=== PATIENT | female | born 1985 | race Caucasian/White ===

== ENCOUNTER 2018-02-03 08:46 | Inpatient (IN) | payer OTHER ==
[~2018-02-03] VITALS: Ht 170.2 cm; Wt 82.2 kg
[2018-02-11] MEDS: D5%-LACTATED RINGERS 1,000 ML IV SCH ×2 (06:23→14:23)
[2018-02-11] MEDS ORDERED: OXYTOCIN 30U/ 0.9% NaCL 500ML 500 ML IV ONE (06:23)
[2018-02-11] MEDS ORDERED: FENTANYL PF 100 MCG/2ML IVPush PRN (06:30)
[2018-02-11] MEDS ORDERED: ONDANSETRON 2MG/ML, 2ML IVPush PRN (06:30)
[2018-02-11] MEDS ORDERED: CALCIUM CARBONATE 500 MG TAB.CHEW PO PRN (06:30)
[2018-02-11] MEDS ORDERED: FENTANYL PF 100 MCG/2ML IV PRN (06:30)
[2018-02-11] MEDS: LACTATED RINGERS 1,000 ML IV SCH ×2 (06:45→14:23)
[2018-02-11 06:57] LABS: BASOPHILS # (AUTO) 0.05 x10^3/uL (0-0.1); BASOPHILS % (AUTO) 1 % (0-1); EOSINOPHILS % (AUTO) 0 % (1-7); LYMPHOCYTES # (AUTO) 2.44 x10^3/uL (1-3.4); LYMPHOCYTES % (AUTO) 29 % (22-44); MD NO; MEAN CORPUSCULAR HEMOGLOBIN 28.7 pg (27.0-34.8); MEAN CORPUSCULAR HGB CONC 33.3 g/dL (32.4-35.8); MEAN CORPUSCULAR VOLUME 86.1 fL (80-100); MEAN PLATELET VOLUME 6.9 fL (7.4-10.4); MONOCYTES # (AUTO) 0.48 x10^3/uL (0.2-0.8); MONOCYTES % (AUTO) 6 % (2-9); NEUTROPHILS # (AUTO) 5.38 x10^3/uL (1.8-6.8); NEUTROPHILS % (AUTO) 64 % (42-75); PLATELET COUNT 267 x10^3/uL (130-400); RED BLOOD COUNT 3.59 x10^6/uL (3.82-5.3); RED CELL DISTRIBUTION WIDTH 13.7 % (9.6-15.2)
[2018-02-11] MEDS ORDERED: SODIUM CITRATE/CITRIC ACID 30 ML UDC PO ONE (07:00)
[2018-02-11] MEDS ORDERED: METOCLOPRAMIDE 5 MG/ML, 2ML IV ONE (07:00)
[2018-02-11] MEDS ORDERED: OXYTOCIN 30U/ 0.9% NaCL 500ML 500 ML ONE ×2 (07:45→16:10)
[2018-02-11] MEDS ORDERED: LIDOCAINE 1%, 20ML ONE ×2 (07:46→15:38)
[2018-02-11] MEDS ORDERED: MISOPROSTOL 200 MCG TABLET ONE (07:46)
[2018-02-11] MEDS ORDERED: SODIUM CITRATE/CITRIC ACID 30 ML UDC ONE (07:48)
[2018-02-11] MEDS ORDERED: METOCLOPRAMIDE 5 MG/ML, 2ML ONE (07:48)
[2018-02-11] MEDS ORDERED: OXYTOCIN 30U/ 0.9% NaCL 500ML 500 ML IV PRN (09:10)
[2018-02-11] MEDS ORDERED: IBUPROFEN 600 MG TABLET ONE (15:54)
[2018-02-11] MEDS: OXYTOCIN 30U/ 0.9% NaCL 500ML 500 ML IV SCH (15:55)
[2018-02-11] MEDS: IBUPROFEN 600 MG TABLET PO PRN ×2 (16:01→23:30)
[2018-02-11 17:42] VITALS: BP 116/75
[2018-02-11 20:20] VITALS: BP 119/78
[2018-02-11 23:30] VITALS: BP 98/58
[2018-02-11 23:54] LABS: BASOPHILS # (AUTO) 0.05 x10^3/uL (0-0.1); BASOPHILS % (AUTO) 0 % (0-1); EOSINOPHILS % (AUTO) 0 % (1-7); LYMPHOCYTES # (AUTO) 2.03 x10^3/uL (1-3.4); LYMPHOCYTES % (AUTO) 17 % (22-44); MD NO; MEAN CORPUSCULAR HEMOGLOBIN 29.5 pg (27.0-34.8); MEAN CORPUSCULAR HGB CONC 33.9 g/dL (32.4-35.8); MEAN PLATELET VOLUME 7.4 fL (7.4-10.4); MONOCYTES # (AUTO) 0.63 x10^3/uL (0.2-0.8); MONOCYTES % (AUTO) 5 % (2-9); NEUTROPHILS # (AUTO) 9.52 x10^3/uL (1.8-6.8); NEUTROPHILS % (AUTO) 78 % (42-75); PLATELET COUNT 243 x10^3/uL (130-400); RED BLOOD COUNT 3.23 x10^6/uL (3.82-5.3); RED CELL DISTRIBUTION WIDTH 13.9 % (9.6-15.2)
[2018-02-12] MEDS: OXYTOCIN 30U/ 0.9% NaCL 500ML 500 ML IV SCH ×2 (01:55→11:55)
[2018-02-12 04:30] VITALS: BP 108/69
[2018-02-12 07:42] VITALS: BP 120/72
[2018-02-12] MEDS ORDERED: PRENATAL VIT/IRON/FA 1 EACH TABLET PO SCH (09:00)
[2018-02-12] MEDS ORDERED: IBUP-1222 PO (15:16)
== END 2018-02-12 15:47 | disposition home or self-care (01) | DRG 775 ==
LOC: LDIP 02-11 06:30 → 2NW 02-11 17:13
PROVIDERS: ADMIT Student in an Organized Health Care Education/Training Program; ATTEND Student in an Organized Health Care Education/Training Program
PROC: 10E0XZZ Delivery of Products of Conception, External Approach (ICD-10-PCS; principal; 2018-02-11)
PROC: 10907ZC Drainage of Amniotic Fluid, Therapeutic from Products of Conception, Via Natural or Artificial Opening (ICD-10-PCS; 2018-02-11)
PROC: 0UQMXZZ Repair Vulva, External Approach (ICD-10-PCS; 2018-02-11)
PROC: 3E033VJ Introduction of Other Hormone into Peripheral Vein, Percutaneous Approach (ICD-10-PCS; 2018-02-11)
DX: O48.0 Post-term pregnancy (principal); O34.211 Maternal care for low transverse scar from previous cesarean delivery; O70.0 First degree perineal laceration during delivery; Z37.0 Single live birth; Z3A.41 41 weeks gestation of pregnancy
CPT/HCPCS: 36415; 85025; 86850; 86900; J2590; J7120